=== PATIENT | female | born 1970 | race Native Hawaiian/Other Pacific Islander ===

== ENCOUNTER 2017-06-02 06:10 | Day surgery (SDC) | payer OTHER ==
[2017-06-02] MEDS ORDERED: ACETAMINOPHEN 1,000 MG/100 ML 100 ML IV ONE (06:34)
[2017-06-02] MEDS ORDERED: ceFAZolin 2 GM/50 ML 50 ML IV ONE (06:34)
[2017-06-02] MEDS ORDERED: LACTATED RINGERS 1,000 ML IV ONE (06:35)
[2017-06-02] MEDS ORDERED: LIDOCAINE-MPF 2% 5 ML VIAL IM ONE (08:20)
[2017-06-02] MEDS ORDERED: PROPOFOL 200 MG/20 ML VIAL IVP ONE (08:20)
[2017-06-02] MEDS ORDERED: fentaNYL 100 MCG/2 ML VIAL IVP ONE (08:20)
[2017-06-02] MEDS ORDERED: ONDANSETRON 4 MG/2 ML VIAL IVP ONE (08:20)
[2017-06-02] MEDS ORDERED: KETOROLAC 30 MG/ML VIAL IVP ONE (08:20)
[2017-06-02] MEDS ORDERED: DEXAMETHASONE 4 MG/ML VIAL IVP ONE (08:20)
[2017-06-02] MEDS ORDERED: MIDAZOLAM 2 MG/2 ML VIAL IVP ONE (08:20)
[2017-06-02] MEDS ORDERED: BUPIVACAINE 0.25% PF 30 ML VIAL SUBQ ONE (08:23)
[2017-06-02] MEDS: fentaNYL 100 MCG/2 ML VIAL ONE ×2 (08:49→08:58)
[2017-06-02 09:40] VITALS: BP 136/84
--- NOTE | 2017-06-06 11:46 | OPERATIVE REPORT ---
DATE OF SURGERY: 06/02/2017 00:00:00 ID#: [id number]. PREOPERATIVE DIAGNOSIS: Right carpal tunnel syndrome. POSTOPERATIVE DIAGNOSIS: Right carpal tunnel syndrome. OPERATION PERFORMED: Open right carpal tunnel release. PRIMARY SURGEON: Ning Romero MD ANESTHESIOLOGIST: Ling Tabor MD CIRCULATING NURSE: Jose Motta RN SCRUB TECHS 1. Lindarylie Phillips, EMBROIDERER HAND 2. Beryl Hollingsworth RN, BSN ANESTHESIA: General via LMA. IV FLUIDS: 600 mL of lactated Ringer's. ESTIMATED BLOOD LOSS: 1 mL. ANTIBIOTICS: 2 grams Ancef IV. TOURNIQUET: To right arm at 200 mmHg for 20 minutes. SPECIMENS: None. COMPLICATIONS: None. IMPLANTS: None. INDICATIONS: This is a 47-year-old female with bilateral hand numbness and tingling for the last 4 months. She had an EMG that showed severe compression lesion of the median nerve at the carpal tunnel. The risks, benefits, indications, and expectations of treatment options were discussed with the patient; risks of surgery to include, but not limited to infection, bleeding, damage to neurovascular structures, damage to flexor tendons, need for additional surgery, pain, stiffness, deep vein thrombosis, pulmonary embolism, loss of limb, and loss of life were discussed with the patient. All questions were answered, the patient elected to proceed with surgery, and informed consent was obtained. PROCEDURE: The patient was met in the preoperative hold area on the morning of surgery, where we confirmed that we had the correct patient, planned to do the correct procedure, and had the correct extremity which was the right upper extremity identified. Prior to the patient receiving any medications, the operative extremity was signed by the surgeon. The patient was then brought back to the operating room in stable condition and placed supine on the operating room table. All bony prominences were well-padded, and sequential compression devices were placed on the bilateral lower extremities. General anesthesia was then induced without complication, and an LMA was placed. The right upper extremity was then prepped and draped in the usual sterile fashion. After final draping, additional ChloraPrep was utilized on the operative site, 3 minutes were allowed to lapse to enable the ChloraPrep to dry. We held a surgical time-out, where we confirmed that we had the correct patient, planned to do the correct procedure, and had the correct extremity which was the right upper extremity identified. We also verified that we had all necessary equipment in the room, that the patient received preoperative antibiotics, and that no members of the operative team had any concerns. We began by exsanguinating the right upper extremity and inflating the tourniquet to 200 mmHg. We then made an incision over the volar carpal tunnel in line with the radial aspect of the ring finger. After sharply incising the skin, we utilized bipolar cautery to dissect through the subcuticular layer. We identified the palmar fascia and sharply incised this with a new knife blade. We then identified the transverse carpal ligament and made a small vik in this. Then passed the Brule underneath the transverse carpal ligament and sharply divided the transverse carpal ligament utilizing the Brule to protect the contents of the carpal tunnel. Proximally we then, after ensuring adequate room above and below the proximal portion of the transverse carpal ligament, utilized tenotomies to cut the remainder of the proximal ligament. We then passed a Brule proximally and distally, confirming that there was adequate room. We then thoroughly irrigated the wound. We then closed the skin utilizing 3-0 nylon in a horizontal mattress fashion. We then injected 6 mL of 0.25% Sensorcaine without epinephrine about the incision for local analgesia. We then dressed the wound with sterile Xeroform, plain gauze, and Webril. We then placed the patient into a volar resting splint. The patient was awakened from general anesthesia without complication and taken to the PACU in stable condition. All sponge counts and needle counts were correct at the conclusion of the case. POSTOPERATIVE PLAN: The patient will remain in her splint. We will plan to see her back at 2 weeks, at which time we will remove the splint and remove the sutures, and begin the patient with range of motion. Report edited and signed 06/07/2017 by Ning Romero MD. JOB #: [id number] EXT JOB #:[id number] JAKE
== END 2017-06-02 06:11 | disposition home or self-care (01) ==
LOC: MERGE 06:10 → SDS 06:10
PROVIDERS: ATTEND Orthopaedic Surgery
PROC: 01N50ZZ Release Median Nerve, Open Approach (ICD-10-PCS; principal; 2017-06-02 07:30)
DX: G56.01 Carpal tunnel syndrome, right upper limb (principal); I10 Essential (primary) hypertension; E78.5 Hyperlipidemia, unspecified; E66.01 Morbid (severe) obesity due to excess calories
CPT/HCPCS: 64721; J0131; J0690; J7120